=== PATIENT | male | born 2000 ===

== ENCOUNTER 2021-11-10 14:44 | Day surgery (SDC) | payer BC ==
[2021-11-10] MEDS ORDERED: Sodium Chloride 0.9% 100 ML ONE (17:18)
[2021-11-10] MEDS ORDERED: cefOXitin 2 GM VIAL ONE (17:18)
[2021-11-10] MEDS ORDERED: Ketorolac Tromethamine 30 MG/ML VIAL ONE (18:10)
[2021-11-10] MEDS ORDERED: fentaNYL Citrate/PF 100 MCG/2 ML SYRINGE ONE (18:20)
[2021-11-10] MEDS ORDERED: Midazolam HCl 2 mg/2 ml Vial ONE (18:22)
[2021-11-10] MEDS ORDERED: Dexmedetomidine 200 MCG/2 ML VIAL ONE (18:22)
[2021-11-10] MEDS ORDERED: Bupivacaine/Epinephrine 0.25% 30 ML VIAL ONE (18:26)
[2021-11-10] MEDS ORDERED: Rocuronium Bromide 10 MG/ML (10ML VIAL) ONE (18:37)
[2021-11-10] MEDS ORDERED: PROPOFOL 200 MG/20 ML VIAL ONE (18:37)
[2021-11-10] MEDS ORDERED: Dexamethasone 20 MG/5 ML VIAL ONE (18:37)
[2021-11-10] MEDS ORDERED: ePHEDrine 50 MG/ML VIAL ONE (18:37)
[2021-11-10] MEDS ORDERED: Lidocaine 1% MPF 2 ML VIAL ONE (18:37)
[2021-11-10] MEDS ORDERED: HYDROcodone/Acetaminophen 5/325 mg Tablet ONE (20:31)
[2021-11-10] MEDS ORDERED: Ondansetron PF 4 MG/2 ML Vial ONE (20:42)
== END 2021-11-10 21:00 | disposition home or self-care (01) ==
LOC: SDC 14:44
PROVIDERS: ATTEND Specialist
PROC: 0DTJ4ZZ Resection of Appendix, Percutaneous Endoscopic Approach (ICD-10-PCS; principal; 2021-11-10)
DX: K35.80 Unspecified acute appendicitis (principal)
CPT/HCPCS: 88304; A4649; J0694; J1100; J1885; J2250; J2405; J2704; J3490